=== PATIENT | male | born 1950 | race Caucasian/White ===

== ENCOUNTER 2018-03-13 13:30 | Outpatient (RCR) | payer MEDICARE, BC | END 2018-03-17 | disposition home or self-care (01) | LOC: PT | DX: M47.817 Spondylosis without myelopathy or radiculopathy, lumbosacral region (principal) | CPT/HCPCS: G8981-GP; G8982-GP ==

== ENCOUNTER 2018-04-18 13:00 | Outpatient (RCR) | payer MEDICARE, BC | END 2018-04-18 13:30 | disposition home or self-care (01) | LOC: PT 13:00 | DX: M47.817 Spondylosis without myelopathy or radiculopathy, lumbosacral region (principal) | CPT/HCPCS: G8982-GP; G8983-GP ==

== ENCOUNTER 2018-08-27 08:30 | Outpatient (RCR) | payer MEDICARE, BC | END 2018-09-02 | disposition still patient (30) | LOC: PT | DX: M54.2 Cervicalgia (principal); M54.5 Low back pain ==

== ENCOUNTER 2018-11-06 16:00 | Outpatient (RCR) | payer MEDICARE, BC | END 2018-12-02 | disposition still patient (30) | LOC: PT | DX: M54.2 Cervicalgia (principal); M54.5 Low back pain ==

== ENCOUNTER 2018-12-03 10:00 | Outpatient (RCR) | payer MEDICARE, BC | END 2018-12-03 10:30 | LOC: PT 10:00 | DX: M54.2 Cervicalgia (principal); M54.5 Low back pain ==

== ENCOUNTER 2020-01-26 15:30 | Outpatient (RCR) | payer MEDICARE, BC | END 2020-02-15 | disposition home or self-care (01) | LOC: PT | DX: M54.5 Low back pain (principal) ==

== ENCOUNTER 2020-02-19 14:30 | Outpatient (RCR) | payer MEDICARE, BC | END 2020-05-19 | disposition home or self-care (01) | LOC: PT | DX: M54.5 Low back pain (principal) ==

== ENCOUNTER → 2020-03-07 | Outpatient (RCR) | payer MEDICARE, BC | LOC: PT | DX: M54.5 Low back pain (principal) ==

== ENCOUNTER 2020-12-27 14:30 | Outpatient (RCR) | payer MEDICARE, BC | END 2021-02-10 23:59 | disposition home or self-care (01) | LOC: PT 14:30 | DX: M54.50 Low back pain, unspecified (principal) ==

== ENCOUNTER 2021-02-21 14:18 | Outpatient (RCR) | payer MEDICARE, BC | END 2021-03-13 | disposition home or self-care (01) | LOC: PT | DX: M54.50 Low back pain, unspecified (principal) ==

== ENCOUNTER 2021-04-03 13:59 | Outpatient (RCR) | payer MEDICARE, BC | END 2021-04-10 | disposition home or self-care (01) | LOC: PT | DX: M54.50 Low back pain, unspecified (principal) ==

== ENCOUNTER 2021-04-12 09:46 | Outpatient (RCR) | payer MEDICARE, BC | END 2021-05-11 | disposition home or self-care (01) | LOC: PT | DX: M54.50 Low back pain, unspecified (principal) ==

== ENCOUNTER → 2024-02-21 | Outpatient (CLI) | payer OTHER, BC | LOC: RAD 07:50 | DX: M47.817 Spondylosis without myelopathy or radiculopathy, lumbosacral region (principal); M47.816 Spondylosis without myelopathy or radiculopathy, lumbar region; M51.360 Other intervertebral disc degeneration, lumbar region with discogenic back pain only; M48.061 Spinal stenosis, lumbar region without neurogenic claudication; M51.370 Other intervertebral disc degeneration, lumbosacral region with discogenic back pain only; M43.8X4 Other specified deforming dorsopathies, thoracic region; Z98.890 Other specified postprocedural states ==